=== PATIENT | male | born 1945 | race Caucasian/White ===

== ENCOUNTER → 2019-06-01 08:45 | Outpatient (CLI) | payer MEDICARE, OTHER, SELFPAY ==
--- NOTE | 2019-06-01 08:47 | DI.RAD.S_ITS ---
PROCEDURE: XR SHOULDER LT MIN 2V INDICATIONS: left shoulder pain TECHNIQUE: 3 views of the shoulder were acquired. COMPARISON: None. FINDINGS: Bones: No fractures or dislocations. No suspicious bony lesions. Visualized ribs appear intact. Soft tissues: No suspicious soft tissue calcifications. 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 Dictated by: Danilo Hale M.D. on 06/01/2019 at 9:53 Approved by: Danilo Hale M.D. on 06/01/2019 at 9:53
== END ==
PROVIDERS: PCP Family Medicine; Visit Provider Physical Medicine & Rehabilitation
DX: M25.512 Pain in left shoulder (principal); M19.012 Primary osteoarthritis, left shoulder
CPT/HCPCS: 20611; 73030; 99214; J0702

== ENCOUNTER → 2021-09-02 10:00 | Outpatient (CLI) | payer MEDICARE, OTHER, SELFPAY ==
[2021-09-02 13:15] LABS: COVID19 -Nasal RAPID Negative (Negative)
== END ==
PROVIDERS: PCP Family Medicine; Referring Provider Physical Medicine & Rehabilitation; Visit Provider Physical Medicine & Rehabilitation
DX: Z20.822 Contact with and (suspected) exposure to COVID-19 (principal)
CPT/HCPCS: 87635; C9803

== ENCOUNTER 2021-09-03 10:30 | Outpatient (CLI) | payer MEDICARE, OTHER, SELFPAY ==
--- NOTE | 2021-09-03 10:31 | DI.RAD.S_ITS ---
PROCEDURE: PAIN L/S TRANSFORAMINAL INJECT INDICATIONS: SPONDYLOSIS COMPARISON: [facility] [place], CR, XR LUMBAR SPINE 2 OR 3 VIEWS, 05/20/2021, 11:29. FINDINGS: Fluoroscopic spot filming was performed to verify placement of a spinal needle at the L4-L5 level on the right, as labeled on the films. Appropriate location of the needle tip was confirmed by injection of iodinated contrast. IMPRESSION: Intraprocedural examination within normal limits. Dictated by: Trung Shore M.D. on 09/03/2021 at 11:12 Approved by: Trung Shore M.D. on 09/03/2021 at 11:12
[2021-09-03 11:00] VITALS: BP 146/68; PULSE 61; RESP 15; TEMP 37.1; O2SAT 98
[2021-09-03 11:50] VITALS: BP 181/83; PULSE 72; RESP 18; O2SAT 99
[2021-09-03] MEDS: IOPAMIDOL 15 ML VIAL 3 ML INJ (11:54)
[2021-09-03] MEDS: BUPIVACAINE 0.25% (PF) VIAL 2 ML INJ (11:54)
[2021-09-03 11:55] VITALS: BP 164/72; PULSE 65; RESP 15; O2SAT 99
[2021-09-03] MEDS: BETAMETHASONE 30 MG/5 ML MDV 12 MG INJ (11:55)
[2021-09-03] MEDS: DEXAMETHASONE 10 MG/ML VIAL 20 MG INJ (11:55)
[2021-09-03 12:00] VITALS: BP 160/70; PULSE 66; RESP 12; O2SAT 99
--- NOTE | 2021-09-03 12:05 | P.PCN_ITS ---
Date/Time/Diagnoses Date of procedure: 09/03/21 Time of procedure: 12:05 Pre-procedure diagnosis: 1. FORAMINAL STENOSIS WITH LE SYMPTOMS Post-procedure diagnosis: same Procedure Notes Procedure: 1. FLUOROSCOPICALLY GUIDED CONTRAST CONTROLLED TRANSFORAMINAL EPIDURAL STEROID INJECTION - RIGHT L4/5 TFESI Indications: Jonnathan is referred by Dr. Lopez for treatment of Foraminal Stenosis with Right LE Symptoms Physician: Deondre Cameron Total Fluoroscopy time (seconds): 10 Total sedation minutes: 0 Complications: none Procedure in detail & Post-procedure care: FINDINGS Foraminal Nerve Root Compression secondary to disc disease and facet hypertrophy DESCRIPTION OF PROCEDURE Following review of allergy and review of potential side effects and complications, including, but not necessarily limited to, infection, allergic reaction, local tissue breakdown, stroke, temporary or permanent nerve injury, paralysis, and possible , the patient indicated that the patient understood and agreed to proceed. An informed consent document was signed by the patient, witnessed by a nurse, and placed in the patient's chart. Additionally, other treatment options including medications, modalities, and physical therapy were reviewed with the patient. After review of previous anaesthesic history and IV conscious sedation the patient was deemed safe to proceed with today?s procedure with IV conscious sedation as ASA class II designation. Safety time-out was performed to confirm patient ID, procedure to be performed and site of procedure. IV sedation was deemed unnecessary and thus not administered by the RN after DO order, titrated to patient comfort during the course of the procedure while the patient remained responsive to all verbal commands In the prone position following sterile prep and drape of the lumbar region, the right L4/5 posterior neuroforamen was identified fluoroscopically. The skin was anesthetized via a 25-gauge 1.5-inch needle with 1% lidocaine solution. At this point, a 25-gauge 3.5-inch spinal needle was atraumatically introduced and advanced under fluoroscopic guidance through the posterior right L4/5 neuroforamen to approximately the anterior aspect of the canal. Depth was confirmed on lateral view. Following negative aspiration, injection of approximately 1.5cc of Isovue 200 under live fluoroscopy in the AP view confirmed excellent flow along the nerve root, into the epidural space without vascular or intrathecal uptake observed Radiological data, including multiple fluoroscopic views of the lumbosacral spine, reveal a spinal needle at the right L4/5 posterior neuroforamen. Subsequent views show flow of contrast material flowing superiorly and inferiorly along the nerve root confirming epidural flow. Subsequently, a test dose of 1.5 cc of 1% lidocaine solution was administered and patient was observed for two minutes for signs or symptoms of complications, including abdominal pain, shortness of breath, bilateral upper or lower extremity weakness, nausea and vomiting, prior to steroid injection. At this point, a total of 4cc or 20mg of dexamethasone and 12mg of betamethasone was injected without incident. The procedure tolerated the procedure well without signs or symptoms of complications prior to transfer to the recovery area continued monitoring without incident. The patient was then transferred to the recovery area where they were observed for an appropriate time after the injection. The patient reported a VAS score of 7 prior to the procedure and a post- procedure VAS of 0. POST OP INSTRUCTIONS The patient was provided a Pain Log to continue to record their response to the target-specific procedure prior to follow-up visit with their referring physician. Additionally, specific post-injection care instructions and a contact number to our office were provided if concerns arise regarding possible complications associated with the procedure are suspected.
[2021-09-03 12:10] VITALS: BP 184/77; PULSE 64; RESP 16; O2SAT 99
== END 2021-09-03 12:15 | disposition home or self-care (01) ==
LOC: RAD 10:31
PROVIDERS: PCP Family Medicine; Referring Provider Physical Medicine & Rehabilitation; Visit Provider Physical Medicine & Rehabilitation
DX: M48.061 Spinal stenosis, lumbar region without neurogenic claudication (principal); M51.16 Intervertebral disc disorders with radiculopathy, lumbar region
CPT/HCPCS: 64483; J0702; J1100

== ENCOUNTER → 2022-01-06 12:24 | Outpatient (CLI) | payer MEDICARE, OTHER, SELFPAY ==
[2022-01-06 14:56] LABS: COVID19 -Nasal RAPID Negative (Negative)
== END ==
PROVIDERS: PCP Family Medicine; Visit Provider Physical Medicine & Rehabilitation
DX: Z20.822 Contact with and (suspected) exposure to COVID-19 (principal)
CPT/HCPCS: 87635; C9803

== ENCOUNTER 2022-01-07 08:09 | Outpatient (CLI) | payer MEDICARE, OTHER, SELFPAY ==
--- NOTE | 2022-01-07 08:11 | DI.RAD.S_ITS ---
PROCEDURE: PAIN L/SI FACET INJ/BLK 1STL INDICATIONS: SPONDYLOSIS COMPARISON: None. FINDINGS: Fluoroscopic spot filming was performed to verify placement of spinal needles at the right L4-L5 and L5-S1 facets level(s), as labeled on the films. Appropriate location(s) of the needle tip(s) was confirmed by injection of iodinated contrast. IMPRESSION: Access needle tips localized to the right L4-L5 and L5-S1 facets. Dictated by: Meli Diaz MD, PhD on 01/07/2022 at 10:37 Approved by: Meli Diaz MD, PhD on 01/07/2022 at 10:38
[2022-01-07 08:23] VITALS: BP 150/74; PULSE 64; RESP 20; TEMP 37.1; O2SAT 99
[2022-01-07 08:50] VITALS: BP 171/75; PULSE 69; RESP 15; O2SAT 100
[2022-01-07 08:55] VITALS: BP 132/63; PULSE 70; RESP 15; O2SAT 100
[2022-01-07] MEDS: BUPIVACAINE 0.5% (PF) VIAL 5 ML INJ (08:56)
[2022-01-07] MEDS: IOPAMIDOL 15 ML VIAL 3 ML INJ (08:56)
[2022-01-07] MEDS: BETAMETHASONE 30 MG/5 ML MDV 12 MG INJ (08:57)
[2022-01-07 09:00] VITALS: BP 140/65; PULSE 66; RESP 15; O2SAT 100
[2022-01-07 09:05] VITALS: BP 120/98; PULSE 70; RESP 18; O2SAT 98
--- NOTE | 2022-01-07 09:06 | P.PCN_ITS ---
Date/Time/Diagnoses Date of procedure: 01/07/22 Time of procedure: 09:06 Pre-procedure diagnosis: 1. FACET ARTHROPATHY, 2. AXIAL LBP, 3. MULTILEVEL DDD This procedure is found to meet the Governor's proclamation 20-24.2 regarding non urgent procedures. This patient meets multiple criteria for the procedure including continuing or worsening of significant or severe pain, combined with further deterioration of the patient's condition or overall health as well as delay in treatment would be expected to result in less positive ultimate medical outcome. Therefore the decision to perform the procedure in an outpatient hospital setting is found to be in accordance with guidelines of the procl amation. Post-procedure diagnosis: same Procedure Notes Procedure: 1. FLUOROSCOPICALLY GUIDED CONTRAST CONTROLLED FACET JOINT INJECTIONS RIGHT L4/5, L5/S1 Indications: Jonnathan is referred by Dr. Lopez for treatment of Axial LBP Physician: Deondre Cameron Total Fluoroscopy time (seconds): 7 Total sedation minutes: 0 Complications: none Procedure in detail & Post-procedure care: FINDINGS Multilevel Facet Arthropathy with Clinically significant axial LBP DESCRIPTION OF PROCEDURE Fluoroscopically guided, contrast-controlled right L4/5, L5/S1 facet joint injections. Following review of allergy and review of potential side effects and complications, including, but not necessarily limited to, infection, allergic reaction, local tissue breakdown, stroke, temporary or permanent nerve injury, paralysis, and possible , the patient indicated that the patient understood and agreed to proceed. An informed consent document was signed by the patient, witnessed by a nurse, and placed in the patient's chart. Additionally, other treatment options including medications, modalities, and physical therapy were reviewed with the patient. After review of previous anaesthesic history and IV conscious sedation the patient was deemed safe to proceed with today?s procedure with IV conscious sedation as ASA class II designation. Safety time-out was performed to confirm patient ID, procedure to be performed and site of procedure. IV sedation was deemed unnecessary and thus not administered to comfort during the course of the procedure while the patient remained responsive to all verbal commands. In the prone position, following sterile prep and drape of the lumbar region, the posterior aspect of the right L4/5, L5/S1 facet joints were identified fluoroscopically. The skin was anesthetized via a 25-gauge 1.5-inch needle with 1% lidocaine solution into the corresponding facet joints. At this point, a 22- gauge 3.5-inch spinal needle was atraumatically introduced and advanced under fluoroscopic guidance into the corresponding facet joints. Following negative aspiration, injections of approximately 0.2-cc of Isovue 200 confirmed interarticular placement without vascular uptake. Radiological data, including multiple fluoroscopic views of the lumbosacral spine, reveal a spinal needle at the right L4/5, L5/S1 facet joints. Subsequent views show flow of contrast material both superiorly and inferiorly within the joint space without vascular or intrathecal uptake. At this point, a total of 0.5cc including a mixture of 0.25cc Marcaine and 0.25cc betamethasone was injected without complication into each of the corresponding facet joints. The procedure tolerated the procedure well without signs or symptoms of complications prior to transfer to the recovery area continued monitoring without incident. The patient was then transferred to the recovery area where they were observed for an appropriate period of time after the injection. The patient reported a VAS score of 7 prior to the procedure and a post-procedure VAS of 0. POST OP INSTRUCTIONS The patient was provided a Pain Log to continue to record their response to the target-specific procedure prior to follow-up visit with their referring physician. Additionally, specific post-injection care instructions and a contact number to our office were provided if concerns arise regarding possible complications associated with the procedure are suspected.
== END 2022-01-07 09:11 | disposition home or self-care (01) ==
LOC: RAD 08:11
PROVIDERS: PCP Family Medicine; Referring Provider Physical Medicine & Rehabilitation; Visit Provider Physical Medicine & Rehabilitation
DX: M47.816 Spondylosis without myelopathy or radiculopathy, lumbar region (principal); M47.817 Spondylosis without myelopathy or radiculopathy, lumbosacral region; M51.36 Other intervertebral disc degeneration, lumbar region; M51.37 Other intervertebral disc degeneration, lumbosacral region
CPT/HCPCS: 64493; 64494; J0702

== ENCOUNTER → 2022-03-05 08:52 | Outpatient (CLI) | payer MEDICARE, OTHER, SELFPAY ==
--- NOTE | 2022-03-05 08:54 | DI.RAD.S_ITS ---
PROCEDURE: XR HIP W PEL IF DONE ASHKAN MIN 4V INDICATIONS: right hip pain TECHNIQUE: AP pelvis with lateral view(s) of both hip(s). COMPARISON: None. FINDINGS: Bones: No fractures or dislocations. Pelvic ring appears intact. No suspicious bony lesions. Mild symmetric hip and sacroiliac joint degeneration. Moderate degenerative disc disease at L4-L5. Soft tissues: The visualized bowel gas pattern is normal. No suspicious soft tissue calcifications. IMPRESSION: 1. 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 Dictated by: Giulia Cervantes M.D. on 03/05/2022 at 17:43 Approved by: Giulia Cervantes M.D. on 03/05/2022 at 17:52
== END ==
PROVIDERS: PCP Family Medicine; Referring Provider Physical Medicine & Rehabilitation; Visit Provider Physical Medicine & Rehabilitation
DX: M16.0 Bilateral primary osteoarthritis of hip (principal); M46.1 Sacroiliitis, not elsewhere classified; M43.16 Spondylolisthesis, lumbar region; M75.42 Impingement syndrome of left shoulder; M75.122 Complete rotator cuff tear or rupture of left shoulder, not specified as traumatic; M54.17 Radiculopathy, lumbosacral region; M96.1 Postlaminectomy syndrome, not elsewhere classified
CPT/HCPCS: 73522; 99214

== ENCOUNTER → 2022-03-17 09:43 | Outpatient (CLI) | payer MEDICARE, OTHER, SELFPAY ==
[2022-03-17 11:17] LABS: COVID19 -Nasal RAPID Negative (Negative)
== END ==
PROVIDERS: PCP Family Medicine; Visit Provider Physical Medicine & Rehabilitation
DX: Z20.822 Contact with and (suspected) exposure to COVID-19 (principal)
CPT/HCPCS: 87635; C9803

== ENCOUNTER 2022-03-18 15:15 | Outpatient (CLI) | payer MEDICARE, OTHER, SELFPAY ==
[2022-03-18] VITALS (7 sets, daily range): BP systolic 151–176; BP diastolic 71–85; PULSE 73–83; RESP 16–24; TEMP 37.3; O2SAT 98–100
--- NOTE | 2022-03-18 | DI.RAD.S_ITS ---
PROCEDURE: PAIN L/S TRANSFORAMINAL INJECT INDICATIONS: SPONDYLOSIS COMPARISON: [facility], , PAIN L/S TRANSFORAMINAL INJECT, 09/03/2021, 11:54. FINDINGS: Fluoroscopic spot filming was performed to verify placement of a spinal needle at the L4-L5 level, as labeled on the films. Appropriate location of the needle tip was confirmed by injection of iodinated contrast. IMPRESSION: Intraprocedural examination within normal limits. Dictated by: Trung Shore M.D. on 03/18/2022 at 16:27 Approved by: Trung Shore M.D. on 03/18/2022 at 16:28
--- NOTE | 2022-03-18 15:57 | PC.NURSE ---
NO IV OR SEDATION PER PATIENT. OK PER DR. GRAHAM.
[2022-03-18] MEDS: BETAMETHASONE 30 MG/5 ML MDV 6 MG INJ (16:11)
[2022-03-18] MEDS: DEXAMETHASONE 10 MG/ML VIAL 20 MG INJ (16:11)
[2022-03-18] MEDS: IOPAMIDOL 15 ML VIAL 3 ML INJ (16:11)
[2022-03-18] MEDS: BUPIVACAINE 0.25% (PF) VIAL 2 ML INJ (16:11)
--- NOTE | 2022-03-18 16:23 | P.PCN_ITS ---
Date/Time/Diagnoses Date of procedure: 03/18/22 Time of procedure: 16:23 Pre-procedure diagnosis: 1. FORAMINAL STENOSIS WITH LE SYMPTOMS Post-procedure diagnosis: same Procedure Notes Procedure: 1. FLUOROSCOPICALLY GUIDED CONTRAST CONTROLLED TRANSFORAMINAL EPIDURAL STEROID INJECTION - RIGHT L4/5 TFESI Indications: Jonnathan is referred by Dr. Lopez for treatment of Foraminal Stenosis with Right LE Symptoms Physician: Deondre Cameron Total Fluoroscopy time (seconds): 10 Total sedation minutes: 0 Complications: none Procedure in detail & Post-procedure care: FINDINGS Foraminal Nerve Root Compression secondary to disc disease and facet hypertrophy DESCRIPTION OF PROCEDURE Following review of allergy and review of potential side effects and complications, including, but not necessarily limited to, infection, allergic reaction, local tissue breakdown, stroke, temporary or permanent nerve injury, paralysis, and possible , the patient indicated that the patient understood and agreed to proceed. An informed consent document was signed by the patient, witnessed by a nurse, and placed in the patient's chart. Additionally, other treatment options including medications, modalities, and physical therapy were reviewed with the patient. After review of previous anaesthesic history and IV conscious sedation the patient was deemed safe to proceed with today?s procedure with IV conscious sedation as ASA class II designation. Safety time-out was performed to confirm patient ID, procedure to be performed and site of procedure. IV sedation was deemed unnecessary and thus not administered by the RN after DO order, titrated to patient comfort during the course of the procedure while the patient remained responsive to all verbal commands In the prone position following sterile prep and drape of the lumbar region, the right L4/5 posterior neuroforamen was identified fluoroscopically. The skin was anesthetized via a 25-gauge 1.5-inch needle with 1% lidocaine solution. At this point, a 25-gauge 3.5-inch spinal needle was atraumatically introduced and advanced under fluoroscopic guidance through the posterior right L4/5 neuroforamen to approximately the anterior aspect of the canal. Depth was confirmed on lateral view. Following negative aspiration, injection of approximately 1.5cc of Isovue 200 under live fluoroscopy in the AP view confirmed excellent flow along the nerve root, into the epidural space without vascular or intrathecal uptake observed Radiological data, including multiple fluoroscopic views of the lumbosacral spine, reveal a spinal needle at the right L4/5 posterior neuroforamen. Subsequent views show flow of contrast material flowing superiorly and inferiorly along the nerve root confirming epidural flow. Subsequently, a test dose of 1.5 cc of 1% lidocaine solution was administered and patient was observed for two minutes for signs or symptoms of complications, including abdominal pain, shortness of breath, bilateral upper or lower extremity weakness, nausea and vomiting, prior to steroid injection. At this point, a total of 3cc or 20mg of dexamethasone and 6mg of betamethasone was injected without incident. The procedure tolerated the procedure well without signs or symptoms of complications prior to transfer to the recovery area continued monitoring without incident. The patient was then transferred to the recovery area where they were observed for an appropriate time after the injection. The patient reported a VAS score of 7 prior to the procedure and a post- procedure VAS of 0. POST OP INSTRUCTIONS The patient was provided a Pain Log to continue to record their response to the target-specific procedure prior to follow-up visit with their referring physician. Additionally, specific post-injection care instructions and a contact number to our office were provided if concerns arise regarding possible complications associated with the procedure are suspected.
== END 2022-03-18 15:34 | disposition home or self-care (01) ==
PROVIDERS: PCP Family Medicine; Referring Provider Physical Medicine & Rehabilitation; Visit Provider Physical Medicine & Rehabilitation
DX: M48.061 Spinal stenosis, lumbar region without neurogenic claudication (principal); M51.16 Intervertebral disc disorders with radiculopathy, lumbar region
CPT/HCPCS: 64483; J0702; J1100

== ENCOUNTER → 2022-07-07 11:41 | Outpatient (CLI) | payer MEDICARE, OTHER, SELFPAY ==
[2022-07-07 13:05] LABS: COVID19 -Nasal RAPID Negative (Negative)
== END ==
PROVIDERS: PCP Family Medicine; Visit Provider Physical Medicine & Rehabilitation
DX: Z20.822 Contact with and (suspected) exposure to COVID-19 (principal)
CPT/HCPCS: 87635; C9803

== ENCOUNTER 2022-07-08 14:15 | Outpatient (CLI) | payer MEDICARE, OTHER, SELFPAY ==
--- NOTE | 2022-07-08 14:18 | DI.RAD.S_ITS ---
PROCEDURE: PAIN L/SI FACET INJ/BLK 1STL INDICATIONS: SPONDYLOSIS COMPARISON: [facility], XA, PAIN L/SI FACET INJ/BLK 1STL, 01/07/2022, 9:56. FINDINGS: Fluoroscopic spot filming was performed to verify placement of spinal needles 4 multilevel medial branch block procedure. IMPRESSION: Fluoroscopic imaging utilized for performance of a multilevel lumbar medial branch block procedure. Dictated by: Manjit Reyez M.D. on 07/08/2022 at 16:35 Approved by: Manjit Reyez M.D. on 07/08/2022 at 16:35
[2022-07-08 14:32] VITALS: BP 136/72; PULSE 81; RESP 16; TEMP 37.1; O2SAT 97
[2022-07-08 15:00] VITALS: BP 137/63; PULSE 80; RESP 17; O2SAT 97
[2022-07-08 15:05] VITALS: BP 134/64; PULSE 75; RESP 19; O2SAT 99
[2022-07-08] MEDS: IOPAMIDOL 15 ML VIAL 3 ML INJ (15:07)
[2022-07-08] MEDS: LIDOCAINE 1% 20 ML INJ (15:08)
[2022-07-08] MEDS: BUPIVACAINE 0.5% (PF) VIAL 5 ML INJ (15:08)
[2022-07-08 15:10] VITALS: BP 123/57; PULSE 72; RESP 15; O2SAT 98
--- NOTE | 2022-07-08 15:19 | PM.PROC.IR.1 ---
Date/Time/Diagnoses Date of procedure: 07/08/22 Time of procedure: 15:19 Pre-procedure diagnosis: 1. FACET ARTHROPATHY Post-procedure diagnosis: same Procedure Notes Procedure: 1. Right L3, L4, L5 and S1 MB BLOCKS LA Indications: Jonnathan is referred by Dr. Lopez for treatment of Right Axial LBP. Physician: Deondre Cameron Total Fluoroscopy time (seconds): 7 Total sedation minutes: 0 Complications: none Procedure in detail & Post-procedure care: DESCRIPTION OF PROCEDURE Fluoroscopically guided, contrast-controlled right L3, L4, L5 and S1 medial branch blocks with 0.5cc of 0.5% Marcaine. Following review of allergy and review of potential side effects and complications, including, but not necessarily limited to, infection, allergic reaction, local tissue breakdown, nerve injury, paralysis, stroke and possible , the patient indicated that the patient understood and agreed to proceed. An informed consent document was signed by the patient, witnessed by a nurse, and placed in the patient's chart. After review of previous anaesthesic history and IV conscious sedation the patient was deemed safe to proceed with today?s procedure with IV conscious sedation as ASA class II designation. Safety time-out was performed to confirm patient ID, procedure to be performed and site of procedure. IV sedation was deemed unnecessary and thus not administered by the RN after DO order, titrated to patient comfort during the course of the procedure while the patient remained responsive to all verbal commands In the prone position, following sterile prep and drape of the lumbar region, the right L3, L4, L5 and S1 anatomical location of the medial branch of the dorsal ramus was identified fluoroscopically. Subsequently an anesthetic skin wheal using 1% lidocaine solution was initiated at each of the anatomical spots. Subsequently then a 22-gauge 3.5-inch spinal needle was atraumatically introduced and advanced under fluoroscopic guidance at each of the corresponding sites at the right L3, L4, L5 and S1 MB. After negative aspiration, 0.2cc of Isovue 200 was injected, confirming placement without vascular or intrathecal uptake. Subsequently then 0.5cc of 0.5% Marcaine solution was injected at each of the corresponding sites at the right L3, L4, L5 and S1 medial branch locations. The patient tolerated the procedure well without signs or symptoms of complications. The procedure tolerated the procedure well without signs or symptoms of complications prior to transfer to the recovery area continued monitoring without incident. Post-procedure, the patient was monitored initiating provocative activities to measure the amount of relief from block of the facetogenic pain. The patient reported a VAS of 7 prior to the procedure and a post-procedure VAS of 1. It has been a pleasure to assist in the diagnostic and therapeutic care of your patient. POST OP INSTRUCTIONS The patient was provided with a Pain Log to complete over the next several hours and subsequent days prior to the patient's follow up with the ordering physician. If the patient has business continuity specialist relief to the solution applied, then they may be a candidate for medial branch rhizotomy. The patient is aware, was provided, once again, with a Pain Log and will follow up with the referring physician for review and clinical correlation.
[2022-07-08 15:20] VITALS: BP 157/69; PULSE 79; RESP 18; O2SAT 98
== END 2022-07-08 15:25 | disposition home or self-care (01) ==
LOC: RAD 14:18
PROVIDERS: PCP Family Medicine; Referring Provider Physical Medicine & Rehabilitation; Visit Provider Physical Medicine & Rehabilitation
DX: M47.816 Spondylosis without myelopathy or radiculopathy, lumbar region (principal); M47.817 Spondylosis without myelopathy or radiculopathy, lumbosacral region
CPT/HCPCS: 64493; 64494; 64495

== ENCOUNTER 2022-10-14 07:59 | Outpatient (CLI) | payer MEDICARE, OTHER, SELFPAY ==
--- NOTE | 2022-10-14 08:00 | DI.RAD.S_ITS ---
PROCEDURE: PAIN L/SI FACET INJ/BLK 1STL INDICATIONS: SPONDYLOSIS COMPARISON: [facility], , PAIN L/SI FACET INJ/BLK 1STL, 07/08/2022, 15:04. FINDINGS: Fluoroscopic spot filming was performed to verify placement of spinal needles on the right at the L3, L4, L5, and S1 levels, as labeled on the films. Appropriate location of the needle tips was confirmed by injection of iodinated contrast. IMPRESSION: Intraprocedural examination demonstrating appropriate positions of the needles. Dictated by: Trung Shore M.D. on 10/14/2022 at 12:03 Approved by: Trung Shore M.D. on 10/14/2022 at 12:03
[2022-10-14 08:42] VITALS: BP 136/63; PULSE 61; RESP 18; TEMP 37; O2SAT 97
--- NOTE | 2022-10-14 08:44 | PC.NURSE ---
Patient does not want sedation, refused IV placement
[2022-10-14 09:31] VITALS: BP 162/72; PULSE 60; RESP 18; O2SAT 100
[2022-10-14 09:36] VITALS: BP 153/70; PULSE 63; RESP 16; O2SAT 100
[2022-10-14] MEDS: IOPAMIDOL 15 ML VIAL 3 ML INJ (09:36)
[2022-10-14] MEDS: BUPIVACAINE 0.5% MDV 5 ML SUBCUT (09:37)
[2022-10-14 09:41] VITALS: BP 134/62; PULSE 62; RESP 13; O2SAT 100
[2022-10-14 09:43] VITALS: BP 131/65; PULSE 63; RESP 12; O2SAT 100
--- NOTE | 2022-10-14 09:47 | P.PCN_ITS ---
Date/Time/Diagnoses Date of procedure: 10/14/22 Time of procedure: 09:47 Pre-procedure diagnosis: 1. FACET ARTHROPATHY Post-procedure diagnosis: same Procedure Notes Procedure: 1. Right L3, L4, L5 and S1 MB BLOCKS SA Indications: Jonnathan is referred by Dr. Lopez for treatment of Right Axial LBP. Physician: Deondre Cameron Total Fluoroscopy time (seconds): 6 Total sedation minutes: 0 Complications: none Procedure in detail & Post-procedure care: DESCRIPTION OF PROCEDURE Fluoroscopically guided, contrast-controlled right L3, L4, L5 and S1 medial branch blocks with 0.5cc of 2% Lidocaine. Following review of allergy and review of potential side effects and complications, including, but not necessarily limited to, infection, allergic reaction, local tissue breakdown, nerve injury, paralysis, stroke and possible , the patient indicated that the patient understood and agreed to proceed. An informed consent document was signed by the patient, witnessed by a nurse, and placed in the patient's chart. After review of previous anaesthesic history and IV conscious sedation the patient was deemed safe to proceed with today?s procedure with IV conscious sedation as ASA class II designation. Safety time-out was performed to confirm patient ID, procedure to be performed and site of procedure. IV sedation was deemed unnecessary and thus not administered by the RN after DO order, titrated to patient comfort during the course of the procedure while the patient remained responsive to all verbal commands In the prone position, following sterile prep and drape of the lumbar region, the right L3, L4, L5 and S1 anatomical location of the medial branch of the dorsal ramus was identified fluoroscopically. Subsequently an anesthetic skin wheal using 1% lidocaine solution was initiated at each of the anatomical spots. Subsequently then a 22-gauge 3.5-inch spinal needle was atraumatically introduced and advanced under fluoroscopic guidance at each of the corresponding sites at the right L3, L4, L5 and S1 MB. After negative aspiration, 0.2cc of Isovue 200 was injected, confirming placement without vascular or intrathecal uptake. Subsequently then 0.5cc of 2% Lidocaine solution was injected at each of the corresponding sites at the right L3, L4, L5 and S1 medial branch locations. The patient tolerated the procedure well without signs or symptoms of complications. The procedure tolerated the procedure well without signs or symptoms of complications prior to transfer to the recovery area continued monitoring without incident. Post-procedure, the patient was monitored initiating provocative activities to measure the amount of relief from block of the facetogenic pain. The patient reported a VAS of 7 prior to the procedure and a post-procedure VAS of 1. It has been a pleasure to assist in the diagnostic and therapeutic care of your patient. POST OP INSTRUCTIONS The patient was provided with a Pain Log to complete over the next several hours and subsequent days prior to the patient's follow up with the ordering physician. If the patient has pc support specialist relief to the solution applied, then they may be a candidate for medial branch rhizotomy. The patient is aware, was provided, once again, with a Pain Log and will follow up with the referring physician for review and clinical correlation.
[2022-10-14 09:50] VITALS: BP 168/71; PULSE 68; RESP 16; O2SAT 97
== END 2022-10-14 09:55 | disposition home or self-care (01) ==
PROVIDERS: PCP Family Medicine; Referring Provider Physical Medicine & Rehabilitation; Visit Provider Physical Medicine & Rehabilitation
DX: M47.816 Spondylosis without myelopathy or radiculopathy, lumbar region (principal); M47.817 Spondylosis without myelopathy or radiculopathy, lumbosacral region
CPT/HCPCS: 64493; 64494; 64495

== ENCOUNTER 2023-02-10 10:10 | Outpatient (CLI) | payer MEDICARE, OTHER, SELFPAY ==
[2023-02-10] VITALS (8 sets, daily range): BP systolic 125–181; BP diastolic 60–80; PULSE 62–71; RESP 13–20; TEMP 36.6; O2SAT 96–100
--- NOTE | 2023-02-10 10:16 | DI.RAD.S_ITS ---
PROCEDURE: PAIN L/S MED/LAT N RFA INDICATIONS: SPONDYLOSIS COMPARISON: [facility], , PAIN L/SI FACET INJ/BLK 1STL, 10/14/2022, 10:37. FINDINGS: Fluoroscopic spot filming was performed to verify placement of spinal needles on the right at the L3, L4, L5, and S1 levels, as labeled on the films. IMPRESSION: Images during rhizotomy within normal limits. Dictated by: Trung Shore M.D. on 02/10/2023 at 12:17 Approved by: Trung Shore M.D. on 02/10/2023 at 12:18
[2023-02-10] MEDS: LIDOCAINE 1% (PF) 5 ML INJ (12:00)
[2023-02-10] MEDS: BUPIVACAINE 0.5% (PF) 30 ML VIAL 5 ML INJ (12:00)
--- NOTE | 2023-02-10 12:30 | P.PCN_ITS ---
Date/Time/Diagnoses Date of procedure: 02/10/23 Time of procedure: 12:30 Pre-procedure diagnosis: 1. RECALCITRANT FACET ARTHROPATHY Post-procedure diagnosis: same Procedure Notes Procedure: 1. RIGHT L4 AND L5 MEDIAL BRANCH RADIOFREQUENCY NEUROTOMY AND RIGHT S1 DORSAL RAMUS BRANCH RADIOFREQUENCY NEUROTOMY Indications: Jonnathan is referred by Dr. Lopez for treatment of facet arthropathy. Physician: Deondre Cameron Total Fluoroscopy time (seconds): 11 Total sedation minutes: 0 Complications: none Procedure in detail & Post-procedure care: DESCRIPTION OF PROCEDURE Right L3, L4 and L5 medial branch radiofrequency neurotomy and right S1 dorsal ramus branch radiofrequency neurotomy under fluoroscopy with conscious sedation. The patient is well known to this clinic having undergone previous facet injecti ons with good but temporary relief. The patient has experienced appropriate, concordant relief with previous facet and median branch blocks but the patient's pain has been recalcitrant to further conservative measures. Therefore, based upon the patient's relief and persistent symptoms, the patient is considered an appropriate candidate for facet rhizotomy. All of the patient's questions regarding the risks versus benefits of the procedure, including, but not limited to, bleeding, infection, temporary as well as lasting nerve injury, paralysis, stroke, and , as well treatment alternatives were answered to satisfaction. After review of previous anaesthesic history and IV conscious sedation the patient was deemed safe to proceed with today?s procedure with IV conscious sedation as ASA class II designation. Safety time-out was performed to confirm patient ID, procedure to be performed and site of procedure. IV sedation was deemed unnecessary and thus was not administered by the RN after DO order, titrated to patient comfort during the course of the procedure while the patient remained responsive to all verbal commands. After obtaining informed consent, denial of pertinent drug allergies, as well as being made aware of the potential risks of bleeding, infection, spinal cord trauma, paralysis, temporary and permanent nerve damage, seizure, stroke, and possible , the patient was brought to the fluoroscopy suite and positioned prone on the fluoroscopy table. The lumbar region was prepped with chlorhexadine and covered with a fenestrated drape in the usual sterile fashion. Appropriate monitors applied including pulse oximeter, pulse, and blood pressure for regular monitoring throughout the procedure. After local infiltration using 1% lidocaine, under fluoroscopic guidance, a 10- cm RF insulated venom needle with a 10-mm active tip was positioned parallel to the junction of the right sacral ala and the superior articulating process where the S1 dorsal ramus resides. Needle placement was confirmed with sensory stimulation at 50 Hz, with motor stimulation of .5v on the right which produced local stimulation without radicular component. The stimulation was then increased to 2v with, once again, only local multifidus stimulation without radicular component. This was then followed by two discreet lesions performed at 80 degrees Celsius for 90 seconds each. The needle was then removed and the identical procedure was performed along the length of the right L5 medial branch with motor stimulation at .7v on the right. The identical procedure was once again performed along the length of the right L4 medial branch with motor stimulation of .5v on the right. The identical procedure was once again performed along the length of the right L3 medial branch with motor stimulation of .5v on the right. The patient tolerated the procedure well without signs or symptoms of complications prior to transfer to the recovery area continued monitoring wit hout incident. The patient was then transferred to the recovery area where they were observed for an appropriate period of time after the injection. The patient was then transferred to the recovery area where they were observed for an appropriate period of time after the injection. The patient reported a VAS score of 8 prior to the procedure and a post- procedure VAS of 0. POST OP INSTRUCTIONS The patient was provided a Pain Log to continue to record the patient's response to the target-specific procedure prior to the patient's follow-up visit with the referring physician. Additionally, specific post-injection care instructions and a contact number to our office were provided if concerns arise regarding possible complications associated with the procedure are suspected.
== END 2023-02-10 12:37 | disposition home or self-care (01) ==
PROVIDERS: PCP Family Medicine; Referring Provider Physical Medicine & Rehabilitation; Visit Provider Physical Medicine & Rehabilitation
DX: M47.816 Spondylosis without myelopathy or radiculopathy, lumbar region (principal); M47.817 Spondylosis without myelopathy or radiculopathy, lumbosacral region
CPT/HCPCS: 64635; 64636

== ENCOUNTER → 2023-04-30 07:44 | Outpatient (CLI) | payer MEDICARE, OTHER, SELFPAY ==
--- NOTE | 2023-04-30 07:46 | DI.MRI.S_ITS ---
PROCEDURE: MR CERVICAL SPINE WO CON INDICATIONS: Progressive cervical stenosis TECHNIQUE: Noncontrast sagittal T1 spin echo and T2 fast spin echo, sagittal STIR, foraminal oblique sagittal T2 fast spin echo, and axial gradient echo or T2 fast spin echo through the cervical spine. [facility]W, 03/28/2016, 10:15. FINDINGS: Image quality: Excellent. Alignment and Curvature: 3 mm anterolisthesis of C4 on C5. 4 mm anterolisthesis of C5 on C6. Trace retrolisthesis of C6 on C7. 3 mm anterolisthesis of C7 on T1. Bone Marrow: Marrow demonstrates normal overall signal. Spinal Cord: Visualized spinal cord has normal size and signal. No cerebellar tonsillar herniation. Paraspinous Soft Tissues: No paravertebral masses. Prevertebral soft tissues are normal in thickness. C2-C3: Right facet hypertrophy. No canal stenosis. Moderate right foraminal stenosis with mild flattening deformity on the exiting right C3 nerve root. C3-C4: Diffuse disc bulge. Mild central posterior disc protrusion. No canal stenosis. AP diameter of the canal is 12 mm. Bilateral prominent uncovertebral joint osteophytes. Moderate to severe bilateral foraminal narrowing with flattening deformity on the exiting bilateral C4 nerve roots. C4-C5: 3 mm anterolisthesis of C4 on C5. Diffuse disc bulge. [id number] canal stenosis. Bilateral uncovertebral joint hypertrophy and facet hypertrophy. Moderate to severe bilateral foraminal narrowing. There is a degree of foraminal right C5 nerve root impingement and flattening deformity on the exiting left C5 nerve root. C5-C6: 4 mm anterolisthesis of C5 on C6. Posterior disc bulge. Bilateral facet hypertrophy. Moderate bilateral foraminal narrowing with flattening deformity on the exiting bilateral C6 nerve roots. C6-C7: Posterior disc post osteophyte diffusely. No canal stenosis. Bilateral uncovertebral joint hypertrophy. Bilateral facet hypertrophy. Moderate bilateral foraminal narrowing with flattening deformity on the exiting bilateral C7 nerve roots. C7-T1: 3 mm anterolisthesis of C7 on T1. No significant canal stenosis. Bilateral uncovertebral joint hypertrophy. Bilateral moderate to severe foraminal narrowing with flattening deformity on the exiting bilateral C8 nerve roots. IMPRESSION: 1. Extensive cervical spondylitic change with multilevel facet arthropathy and multilevel listhesis. 2. There is [id number]-philijck canal stenosis at C4-C5. 3. Significant multilevel foraminal narrowing as described above. Comment: Consider flexion and extension cervical spine plain films to evaluate for abnormal motion Dictated by: Manjit Reyez M.D. on 04/30/2023 at 8:53 Approved by: Manjit Reyez M.D. on 04/30/2023 at 9:13
== END ==
PROVIDERS: PCP Family Medicine; Referring Provider Physical Medicine & Rehabilitation; Visit Provider Physical Medicine & Rehabilitation
DX: M48.02 Spinal stenosis, cervical region (principal); M47.812 Spondylosis without myelopathy or radiculopathy, cervical region; M43.12 Spondylolisthesis, cervical region
CPT/HCPCS: 72141

== ENCOUNTER 2023-05-12 10:08 | Outpatient (CLI) | payer MEDICARE, OTHER, SELFPAY ==
--- NOTE | 2023-05-12 10:10 | DI.RAD.S_ITS ---
PROCEDURE: PAIN L INTERLAMINAR/CAUDAL INJ INDICATIONS: SPONDYLOSIS COMPARISON: [facility] [place], CR, XR LUMBAR SPINE 2 OR 3 VIEWS, 05/20/2021, 11:29. FINDINGS: Fluoroscopic spot filming was performed to verify placement of spinal needle at the L3-4 epidural space, as labeled on the films. Appropriate location of the needle tip was confirmed by injection of iodinated contrast. IMPRESSION: Intraprocedural examination demonstrates appropriate needle position. Approved by: Marquis Echevarria M.D. on 05/12/2023 at 15:59
[2023-05-12 11:05] VITALS: BP 138/52; PULSE 61; RESP 16; TEMP 36.7; O2SAT 98
--- NOTE | 2023-05-12 11:16 | PC.NURSE ---
Patient adamantly refuses IV and sedation. Dr. Cameron aware.
[2023-05-12 11:44] VITALS: BP 140/86; PULSE 64; RESP 13; O2SAT 97
[2023-05-12] MEDS: IOPAMIDOL 15 ML VIAL 3 ML INJ (11:46)
[2023-05-12] MEDS: DEXAMETHASONE 10 MG/ML VIAL 20 MG INJ (11:47)
[2023-05-12] MEDS: BETAMETHASONE 30 MG/5 ML MDV 6 MG INJ (11:48)
[2023-05-12] MEDS: BUPIVACAINE 0.25% (PF) VIAL 2 ML INJ (11:48)
[2023-05-12 11:49] VITALS: BP 133/70; PULSE 58; RESP 14; O2SAT 99
[2023-05-12 11:53] VITALS: BP 134/67; PULSE 63; RESP 19; O2SAT 100
[2023-05-12 12:00] VITALS: BP 152/67; PULSE 63; RESP 18; O2SAT 98
--- NOTE | 2023-05-12 12:01 | P.PCN_ITS ---
Date/Time/Diagnoses Date of procedure: 05/12/23 Time of procedure: 12:01 Pre-procedure diagnosis: 1. HNP WITH RADICULAR FEATURES, 2. MULTILEVEL CENTRAL STENOSIS, Post-procedure diagnosis: same Procedure Notes Procedure: 1. FLUOROSCOPICALLY GUIDED CONTRAST CONTROLLED INTERLAMINAR EPIDURAL STEROID INJECTION - Para Right L3/4 Indications: Jonnathan is referred by Dr. Ba for treatment of Bilateral Foraminal Stenosis L>R LE symptoms. Physician: Deondre Cameron Total Fluoroscopy time (seconds): 7 Total sedation minutes: 0 Complications: none Procedure in detail & Post-procedure care: FINDINGS Multilevel Central Spinal Stenosis with Nerve Root Compression DESCRIPTION OF PROCEDURE Fluoroscopically guided, contrast-controlled L3/4 translaminar epidural steroid injection. Following review of allergy and review of potential side effects and complications, including, but not necessarily limited to, infection, allergic reaction, local tissue breakdown, temporary as well as permanent nerve injury, paralysis, stroke and possible , the patient indicated that the patient understood and agreed to proceed. An informed consent document was signed by the patient, witnessed by a nurse, and placed in the patient's chart. Additionally, other treatment options including modalities, medications, and physical therapy were reviewed with the patient. After review of previous anaesthesic history and IV conscious sedation the patient was deemed safe to proceed with today?s procedure with IV conscious sedation as ASA class II designation. Safety time-out was performed to confirm patient ID, procedure to be performed and site of procedure. IV sedation was deemed unnecessary and thus not administered by the RN after DO order, titrated to patient comfort during the course of the procedure while the patient remained responsive to all verbal commands. In the prone position, following sterile prep and drape of the lumbar region, the L3/4 translaminar space was identified fluoroscopically. The skin was anesthetized via a 25-gauge, 1.5-inch needle with 1% lidocaine solution. At this point, a 22-gauge short bevel spinal needle was atraumatically introduced and advanced under fluoroscopic guidance into the region of the L3/4 translaminar space. Depth was confirmed on lateral view. Radiological data, including multiple fluoroscopic views of the lumbar spine, reveal a spinal needle at the L3/4 translaminar space. Lateral views then show placement of the needle in the epidural space. Subsequent views show contrast material flowing superiorly and inferiorly in the epidural space. No vascular or intrathecal uptake is observed. At this point, using loss of resistance technique with saline and air, the epidural space was entered. This was confirmed following negative aspiration with injection of approximately 1.5 cc of Isovue 200, showing excellent epidural flow without vascular or intrathecal uptake. At this point, 1cc of 1% lidocaine solution combined with 3cc or 20mg of dexamethasone and 6mg of betamethasone was injected without incident. The patient tolerated the procedure well without signs or symptoms of complications prior to transfer to the recovery area continued monitoring without incident. The patient was then transferred to the recovery area where they were observed for an appropriate period of time after the injection. The patient reported a VAS score of 9 prior to the procedure and a post- procedure VAS of 2. POST OP INSTRUCTIONS The patient was provided a Pain Log to continue to record their response to the target-specific procedure prior to follow-up visit with their referring physician. Additionally, specific post-injection care instructions and a contact number to our office were provided if concerns arise regarding possible complications associated with the procedure are suspected.
[2023-05-12 12:05] VITALS: BP 115/59; PULSE 59; RESP 20; O2SAT 99
== END 2023-05-12 12:15 | disposition home or self-care (01) ==
LOC: RAD 10:10
PROVIDERS: PCP Family Medicine; Referring Provider Physical Medicine & Rehabilitation; Visit Provider Physical Medicine & Rehabilitation
DX: M51.16 Intervertebral disc disorders with radiculopathy, lumbar region (principal); M48.061 Spinal stenosis, lumbar region without neurogenic claudication
CPT/HCPCS: 62323; J0702; J1100; J3490

== ENCOUNTER → 2023-07-29 13:25 | Outpatient (CLI) | payer MEDICARE, OTHER, SELFPAY ==
--- NOTE | 2023-07-29 13:27 | DI.RAD.S_ITS ---
PROCEDURE: XR CERVICAL SPINE 4V OR 5V INDICATIONS: Cervical stenosis TECHNIQUE: 5 views of the cervical spine acquired. COMPARISON: [facility], MR, MR CERVICAL SPINE WO CON, 04/30/2023, 7:54. FINDINGS: Bones: Moderate degenerative changes and multilevel trace anterolisthesis of C4 on C5, C5 on C6 and C7 on T1. There is disc space height loss, arthropathy, and osteophytes. No traumatic subluxation or acute vertebral body height loss is seen. On oblique views, multilevel bilateral neural foraminal narrowing is suspected secondary to arthropathy and osteophytes. Soft tissues: Carotid bulb calcifications. C1 on C2 alignment on odontoid view likely within normal limits. No pathologic prevertebral soft tissue swelling. IMPRESSION: Moderate degenerative changes and multilevel, likely degenerative spondylolisthesis. Oblique view show suspected multilevel bilateral areas of neural foraminal narrowing. If there is high concern for further derangement, consider MRI evaluation. Dictated by: Calos Aguilar M.D. on 07/29/2023 at 16:31 Approved by: Calos Aguilar M.D. on 07/29/2023 at 16:33
--- NOTE | 2023-07-29 13:27 | DI.RAD.S_ITS ---
PROCEDURE: XR LUMBAR SPINE MIN 4V INDICATIONS: Bilateral sacral DJD TECHNIQUE: 5 views of the lumbar spine were acquired, including bilateral oblique views. COMPARISON: [facility], MR, MR LUMBAR SPINE WITHOUT CONTRAST, 05/29/2021, 7:54. FINDINGS: Bones: Mild leftward spinal curvature centered at L4. Anterolisthesis of L4 on L5 measuring 7 mm. There is also retrolisthesis of L2 on L3 measuring 8 mm. Mild endplate deformities may represent degenerative disc disease and Schmorl's nodes. Oblique views are limited by overlapping bowel gas and spinal curvature. Partially seen hip and sacroiliac degenerative changes. Overall moderate degenerative changes. Soft tissues: Vascular calcifications. Abdominal calcifications, some which may represent nephroliths. IMPRESSION: Overall moderate degenerative changes, with multilevel spondylolisthesis and levoconvex spinal curvature. If there is high concern for further derangement, consider MRI evaluation. Dictated by: Calos Aguilar M.D. on 07/29/2023 at 16:24 Approved by: Calos Aguilar M.D. on 07/29/2023 at 16:28
== END ==
PROVIDERS: PCP Family Medicine; Referring Provider Physical Medicine & Rehabilitation; Visit Provider Physical Medicine & Rehabilitation
DX: M47.816 Spondylosis without myelopathy or radiculopathy, lumbar region (principal); M43.16 Spondylolisthesis, lumbar region; M53.3 Sacrococcygeal disorders, not elsewhere classified; M47.812 Spondylosis without myelopathy or radiculopathy, cervical region; M48.02 Spinal stenosis, cervical region; M16.0 Bilateral primary osteoarthritis of hip; M75.42 Impingement syndrome of left shoulder; M75.122 Complete rotator cuff tear or rupture of left shoulder, not specified as traumatic; M96.1 Postlaminectomy syndrome, not elsewhere classified
CPT/HCPCS: 72050; 72110; 99214

== ENCOUNTER 2023-08-11 09:41 | Outpatient (CLI) | payer MEDICARE, OTHER, SELFPAY ==
--- NOTE | 2023-08-11 09:42 | DI.RAD.S_ITS ---
PROCEDURE: PAIN SI JOINT INJECTION ASHKAN INDICATIONS: SACROILIAC DISORDER COMPARISON: [facility], CR, XR LUMBAR SPINE MIN 4V, 07/29/2023, 13:35. [facility], CR, XR HIP W PEL IF DONE ASHKAN 3TO4V, 03/05/2022, 8:49. FINDINGS: On these intraprocedural images, there are spinal needles seen overlying the inferior aspect of each sacroiliac joint. Appropriate position of the tip of the needles was confirmed by injection of a small amount of iodinated contrast. IMPRESSION: Successful sacroiliac joint injection. Dictated by: Trung Shore M.D. on 08/11/2023 at 11:29 Approved by: Trung Shore M.D. on 08/11/2023 at 11:30
[2023-08-11 10:00] VITALS: BP 149/67; PULSE 74; RESP 20; TEMP 36.6; O2SAT 97
--- NOTE | 2023-08-11 10:22 | PC.NURSE ---
Patient declines IV or sedation.
[2023-08-11 10:30] VITALS: BP 153/70; PULSE 71; RESP 18; O2SAT 99
[2023-08-11 10:35] VITALS: BP 142/61; PULSE 64; RESP 12; O2SAT 98
[2023-08-11] MEDS: BUPIVACAINE 0.5% (PF) 10 ML VIAL 2 ML INJ (10:37)
[2023-08-11] MEDS: BETAMETHASONE 30 MG/5 ML MDV 12 MG INJ (10:37)
[2023-08-11] MEDS: IOPAMIDOL 15 ML VIAL 3 ML INJ (10:37)
[2023-08-11 10:40] VITALS: BP 141/68; PULSE 61; RESP 18; O2SAT 100
[2023-08-11 10:44] VITALS: BP 130/66; PULSE 63; RESP 18; O2SAT 100
--- NOTE | 2023-08-11 10:48 | PM.PROC.IR.1 ---
Date/Time/Diagnoses Date of procedure: 08/11/23 Time of procedure: 10:48 Pre-procedure diagnosis: Sacroiliac joint pain/DJD Post-procedure diagnosis: same Procedure Notes Procedure: Fluoroscopic guided contrast controlled bilateral sacroiliac joint injection Indications: Jonnathan is referred by Dr. Ba for treatment of bilateral sacroiliac joint DJD Physician: Deondre Cameron Total Fluoroscopy time (seconds): 13 Total sedation minutes: 0 Complications: none Procedure in detail & Post-procedure care: Description of procedure Fluoroscopic guided, contrast controlled bilateral sacroiliac joint injection Following review of allergies and review of potential side effects and complications, including, but not necessarily limited to, infection, allergic reaction, local tissue breakdown, temporary as well as permanent nerve injury, paralysis, stroke and possible , the patient indicated that they understood and agreed to proceed. An informed consent was signed by the patient, witnessed by a nurse, and placed in the patient's chart. Additionally, other treatment options including modalities, medications, and physical therapy were reviewed with the patient. After review of previous anaesthesic history and IV conscious sedation the patient was deemed safe to proceed with today?s procedure with IV conscious sedation as ASA class II designation. Safety time-out was performed to confirm patient ID, procedure to be performed and site of procedure. IV sedation was deemed unnecessary and thus not administered by the RN after DO order, titrated to patient comfort during the course of the procedure while the patient remained responsive to all verbal commands In the prone position following sterile prep and drape of the pelvic region, the hyper lucency on in the inferior aspect of the sacroiliac joint was identified fluoroscopically the skin was anesthetized be a 25 gauge 1.5 inch needle with approximately 2cc of 1% lidocaine solution. At this point, a 22 gauge 3 in spinal needle was atraumatically introduced and advanced under fluoroscopic guidance into the inferior aspect of the right sacroiliac joint. Following negative aspiration, approximately 0.3cc of Isovue-300 was injected confirming intra-articular placement without vascular uptake. Radiographic data, including multiple fluoroscopic views of the pelvis, reveals a spinal needle in the sacroiliac joint hyper lucent zone. Subsequent view show flow contrast tear superiorly and inferiorly within the joint capsule without vascular intrathecal uptake. At this point a total of 1cc of 0.5% Marcaine was combined with 1cc of 6mg of betamethasone was injected without incident. Attention was then refocused the left sacroiliac joint where the procedure was replicated. The procedure tolerated the procedure well without signs or symptoms of complications prior to transfer to the recovery area continued monitoring without incident. The patient was then transferred to the recovery area with a bur observed for an appropriate time after the injection. The patient reverted a vas score of 7 prior to the procedure and post-procedure vas of 1. Postop instructions The patient was provided with a pain like to continue to record the patient's response to the target specific procedure prior to the patient's follow-up visit with the referring physician. Additionally, specific post injection care instructions and a contact number to our office were provided if concerns arise regarding the possible complications associated with procedure are suspected.
[2023-08-11 10:50] VITALS: BP 152/65; PULSE 65; RESP 18; O2SAT 99
== END 2023-08-11 10:55 | disposition home or self-care (01) ==
LOC: RAD 09:42
PROVIDERS: PCP Family Medicine; Referring Provider Physical Medicine & Rehabilitation; Visit Provider Physical Medicine & Rehabilitation
DX: M46.1 Sacroiliitis, not elsewhere classified (principal); M53.3 Sacrococcygeal disorders, not elsewhere classified
CPT/HCPCS: 27096; 77002; J0702

== ENCOUNTER 2023-11-10 08:09 | Outpatient (CLI) | payer MEDICARE, OTHER, SELFPAY ==
[2023-11-10] VITALS (7 sets, daily range): BP systolic 133–157; BP diastolic 56–71; PULSE 60–69; RESP 12–20; TEMP 37.1; O2SAT 96–99
--- NOTE | 2023-11-10 08:25 | PC.NURSE ---
Patient declines IV start and does not want sedation.
--- NOTE | 2023-11-10 08:45 | DI.RAD.S_ITS ---
PROCEDURE: PAIN L/S TRANSFORAM INJECT ASHKAN COMPARISON: CR, XR LUMBAR SPINE MIN 4V, 07/29/2023, 13:35. INDICATIONS: LUMBAR STENOSIS FINDINGS: 8 intraoperative fluoroscopy images demonstrate transforaminal epidural injection at L3-L4 level. IMPRESSION: Fluoroscopy for pain management. Dictated by: Giulia Cervantes M.D. on 11/10/2023 at 9:33 Approved by: Giulia Cervantes M.D. on 11/10/2023 at 9:33
[2023-11-10] MEDS: BUPIVACAINE 0.25% (PF) VIAL 2 ML INJ (08:59)
[2023-11-10] MEDS: iopamidoL 15 ML VIAL 3 ML INJ (09:00)
[2023-11-10] MEDS: BETAMETHASONE 30 MG/5 ML MDV 12 MG INJ (09:00)
[2023-11-10] MEDS: DEXAMETHASONE 10 MG/ML VIAL 20 MG INJ (09:00)
--- NOTE | 2023-11-10 09:15 | PM.PROC.IR.1 ---
Date/Time/Diagnoses Date of procedure: 11/10/23 Time of procedure: 09:15 Pre-procedure diagnosis: 1. FORAMINAL STENOSIS WITH LE SYMPTOMS Post-procedure diagnosis: same Procedure Notes Procedure: 1. FLUOROSCOPICALLY GUIDED CONTRAST CONTROLLED TRANSFORAMINAL EPIDURAL STEROID INJECTION - BILATERAL L3/4 TFESI Indications: Jonnathan is referred by Dr. Ba for treatment of Foraminal Stenosis with bilateral LE Symptoms Physician: Deondre Cameron Total Fluoroscopy time (seconds): 15 Total sedation minutes: 0 Complications: none Procedure in detail & Post-procedure care: FINDINGS Foraminal Nerve Root Compression secondary to disc disease and facet hypertrophy DESCRIPTION OF PROCEDURE Following review of allergy and review of potential side effects and complications, including, but not necessarily limited to, infection, allergic reaction, local tissue breakdown, stroke, temporary or permanent nerve injury, paralysis, and possible , the patient indicated that the patient understood and agreed to proceed. An informed consent document was signed by the patient, witnessed by a nurse, and placed in the patient's chart. Additionally, other treatment options including medications, modalities, and physical therapy were reviewed with the patient. After review of previous anaesthesic history and IV conscious sedation the patient was deemed safe to proceed with today?s procedure with IV conscious sedation as ASA class II designation. Safety time-out was performed to confirm patient ID, procedure to be performed and site of procedure. IV sedation was deemed unnecessary and thus not administered by the RN after DO order, titrated to patient comfort during the course of the procedure while the patient remained responsive to all verbal commands In the prone position following sterile prep and drape of the lumbar region, the right L3/4 posterior neuroforamen was identified fluoroscopically. The skin was anesthetized via a 25-gauge 1.5-inch needle with 1% lidocaine solution. At this point, a 25-gauge 3.5-inch spinal needle was atraumatically introduced and advanced under fluoroscopic guidance through the posterior right L3/4 neuroforamen to approximately the anterior aspect of the canal. Depth was confirmed on lateral view. Following negative aspiration, injection of approximately 1.5cc of Isovue 200 under live fluoroscopy in the AP view confirmed excellent flow along the nerve root, into the epidural space without vascular or intrathecal uptake observed Radiological data, including multiple fluoroscopic views of the lumbosacral spine, reveal a spinal needle at the right L3/4 posterior neuroforamen. Subsequent views show flow of contrast material flowing superiorly and inferiorly along the nerve root confirming epidural flow. Subsequently, a test dose of 1.5cc of 1% lidocaine solution was administered and patient was observed for two minutes for signs or symptoms of complications, including abdominal pain, shortness of breath, bilateral upper or lower extremity weakness, nausea and vomiting, prior to steroid injection. At this point, a total of 2cc or 10mg of dexamethasone and 6mg betamethasone was injected without incident. Attention was then refocused to the left L3/4 level where the identical procedure was replicated. The procedure tolerated the procedure well without signs or symptoms of complications prior to transfer to the recovery area continued monitoring without incident. The patient was then transferred to the recovery area where they were observed for an appropriate time after the injection. The patient reported a VAS score of 7 prior to the procedure and a post-procedure VAS of 0. POST OP INSTRUCTIONS The patient was provided a Pain Log to continue to record their response to the target-specific procedure prior to follow-up visit with their referring physician. Additionally, specific post-injection care instructions and a contact number to our office were provided if concerns arise regarding possible complications associated with the procedure are suspected.
== END 2023-11-10 09:35 | disposition home or self-care (01) ==
LOC: RAD 08:10
PROVIDERS: PCP Family Medicine; Referring Provider Physical Medicine & Rehabilitation; Visit Provider Physical Medicine & Rehabilitation
DX: M48.061 Spinal stenosis, lumbar region without neurogenic claudication (principal); M51.16 Intervertebral disc disorders with radiculopathy, lumbar region; M47.26 Other spondylosis with radiculopathy, lumbar region
CPT/HCPCS: 64483; J0702; J1100; J3490

== ENCOUNTER 2024-03-10 08:12 | Outpatient (CLI) | payer MEDICARE, OTHER, SELFPAY ==
--- NOTE | 2024-03-10 08:13 | DI.RAD.S_ITS ---
PROCEDURE: PAIN L/S TRANSFORAMINAL INJECT INDICATIONS: radiculopathy COMPARISON: [facility], , PAIN L/S TRANSFORAMINAL INJECT, 03/18/2022, 16:11. FINDINGS: Fluoroscopic spot filming was performed to verify placement of spinal needles at the right L3-L4 level(s), as labeled on the films for transforaminal epidural steroid injection. Contrast injection confirms appropriate placement. Fluoroscopy time: 6 seconds. Five images were saved. IMPRESSION: Epidural steroid injection Dictated by: Dereje Chance M.D. on 03/10/2024 at 12:42 Approved by: Dereje Chance M.D. on 03/10/2024 at 12:44
[2024-03-10 08:30] VITALS: BP 108/55; PULSE 70; RESP 18; TEMP 36.8; O2SAT 98
--- NOTE | 2024-03-10 08:41 | PC.NURSE ---
Patient declines sedation and refused IV placement. aware.
[2024-03-10 09:09] VITALS: BP 129/61; PULSE 70; RESP 16; O2SAT 98
[2024-03-10] MEDS: iopamidoL 15 ML VIAL 3 ML INJ (09:11)
[2024-03-10] MEDS: DEXAMETHASONE 10 MG/ML VIAL INJ (09:12)
[2024-03-10] MEDS: BUPIVACAINE 0.25% (PF) VIAL 2 ML INJ (09:12)
[2024-03-10] MEDS: BETAMETHASONE 30 MG/5 ML MDV 6 MG INJ (09:12)
[2024-03-10 09:14] VITALS: BP 125/61; PULSE 65; RESP 13; O2SAT 99
[2024-03-10 09:17] VITALS: BP 120/58; PULSE 64; RESP 10; O2SAT 100
[2024-03-10 09:22] VITALS: BP 125/60; PULSE 72; RESP 16; O2SAT 97
--- NOTE | 2024-03-10 09:28 | PM.PROC.IR.1 ---
Date/Time/Diagnoses Date of procedure: 03/10/24 Time of procedure: 09:28 Pre-procedure diagnosis: 1. FORAMINAL STENOSIS WITH LE SYMPTOMS Post-procedure diagnosis: same Procedure Notes Procedure: 1. FLUOROSCOPICALLY GUIDED CONTRAST CONTROLLED TRANSFORAMINAL EPIDURAL STEROID INJECTION - RIGHT L3/4 TFESI Indications: Jonnathan is referred by Dr. Nugent for treatment of Foraminal Stenosis with right LE Symptoms Physician: Deondre Cameron Total Fluoroscopy time (seconds): 10 Total sedation minutes: 0 Complications: none Procedure in detail & Post-procedure care: FINDINGS Foraminal Nerve Root Compression secondary to disc disease and facet hypertrophy DESCRIPTION OF PROCEDURE Following review of allergy and review of potential side effects and complications, including, but not necessarily limited to, infection, allergic reaction, local tissue breakdown, stroke, temporary or permanent nerve injury, paralysis, and possible , the patient indicated that the patient understood and agreed to proceed. An informed consent document was signed by the patient, witnessed by a nurse, and placed in the patient's chart. Additionally, other treatment options including medications, modalities, and physical therapy were reviewed with the patient. After review of previous anaesthesic history and IV conscious sedation the patient was deemed safe to proceed with today?s procedure with IV conscious sedation as ASA class II designation. Safety time-out was performed to confirm patient ID, procedure to be performed and site of procedure. IV sedation was deemed unnecessary and thus not administered by the RN after DO order, titrated to patient comfort during the course of the procedure while the patient remained responsive to all verbal commands In the prone position following sterile prep and drape of the lumbar region, the right L3/4 posterior neuroforamen was identified fluoroscopically. The skin was anesthetized via a 25-gauge 1.5-inch needle with 1% lidocaine solution. At this point, a 25-gauge 3.5-inch spinal needle was atraumatically introduced and advanced under fluoroscopic guidance through the posterior right L3/4 neuroforamen to approximately the anterior aspect of the canal. Depth was confirmed on lateral view. Following negative aspiration, injection of approximately 1.5 cc of Isovue 200 under live fluoroscopy in the AP view confirmed excellent flow along the nerve root, into the epidural space without vascular or intrathecal uptake observed Radiological data, including multiple fluoroscopic views of the lumbosacral spine, reveal a spinal needle at the right L3/4 posterior neuroforamen. Subsequent views show flow of contrast material flowing superiorly and inferiorly along the nerve root confirming epidural flow. Subsequently, a test dose of 1.5 cc of 1% lidocaine solution was administered and patient was observed for two minutes for signs or symptoms of complications, including abdominal pain, shortness of breath, bilateral upper or lower extremity weakness, nausea and vomiting, prior to steroid injection. At this point, a total of 2cc or 10mg of dexamethasone and 6mg of betamethasone was injected without incident. The patient tolerated the procedure well without signs or symptoms of complications prior to transfer to the recovery area continued monitoring without incident. The patient was then transferred to the recovery area where they were observed for an appropriate time after the injection. The patient reported a VAS score of 9 prior to the procedure and a post-procedure VAS of 1. POST OP INSTRUCTIONS The patient was provided a Pain Log to continue to record their response to the target-specific procedure prior to follow-up visit with their referring physician. Additionally, specific post-injection care instructions and a contact number to our office were provided if concerns arise regarding possible complications associated with the procedure are suspected.
--- NOTE | 2024-03-10 09:39 | PC.NURSE ---
Pt's right knee numbness reassessed at 0930. Patient stated that it was no longer numb and he was able to stand without assistance as well take steps in place. He was back at his baseline mobility upon discharge.
== END 2024-03-10 09:32 | disposition home or self-care (01) ==
LOC: RAD 08:12
PROVIDERS: PCP Family Medicine; Referring Provider Physical Medicine & Rehabilitation; Visit Provider Physical Medicine & Rehabilitation
DX: M48.061 Spinal stenosis, lumbar region without neurogenic claudication (principal); M51.16 Intervertebral disc disorders with radiculopathy, lumbar region; M47.26 Other spondylosis with radiculopathy, lumbar region
CPT/HCPCS: 64483; J0702; J1100; J3490

== ENCOUNTER 2024-06-07 08:18 | Outpatient (CLI) | payer MEDICARE, OTHER, SELFPAY ==
[2024-06-07 08:50] VITALS: BP 125/60; PULSE 66; RESP 18; TEMP 36.9; O2SAT 95
--- NOTE | 2024-06-07 09:15 | DI.RAD.S_ITS ---
PROCEDURE: PAIN L/S TRANSFORAMINAL INJECT INDICATIONS: Right L3/4 TFESI COMPARISON: [facility], , PAIN L/S TRANSFORAMINAL INJECT, 03/10/2024, 9:09. FINDINGS: Fluoroscopic spot filming was performed to verify placement of spinal needles at the right L3-L4 level(s), as labeled on the films. Appropriate location(s) of the needle tip(s) was confirmed by injection of iodinated contrast. IMPRESSION: Intra procedural examination demonstrating appropriate positions of the needles. Dictated by: Bryan Merino M.D. on 06/07/2024 at 11:15 Approved by: Bryan Merino M.D. on 06/07/2024 at 11:16
[2024-06-07 09:25] VITALS: BP 144/63; PULSE 63; RESP 15; O2SAT 100
[2024-06-07 09:30] VITALS: BP 112/58; PULSE 62; RESP 14; O2SAT 100
[2024-06-07] MEDS: BETAMETHASONE 30 MG/5 ML MDV 6 MG INJ (09:32)
[2024-06-07] MEDS: BUPIVACAINE 0.25% (PF) VIAL 2 ML INJ (09:32)
[2024-06-07] MEDS: iopamidoL 15 ML VIAL 3 ML INJ (09:33)
[2024-06-07] MEDS: DEXAMETHASONE 10 MG/ML VIAL INJ (09:33)
[2024-06-07] MEDS: LIDOCAINE 1% 20 ML INJ (09:34)
[2024-06-07 09:35] VITALS: BP 137/63; PULSE 62; RESP 15; O2SAT 100
[2024-06-07 09:40] VITALS: BP 102/69; PULSE 64; RESP 12; O2SAT 100
[2024-06-07 09:50] VITALS: BP 134/63; PULSE 61; RESP 16; O2SAT 97
--- NOTE | 2024-06-07 09:51 | PM.PROC.IR.1 ---
Date/Time/Diagnoses Date of procedure: 06/07/24 Time of procedure: 09:51 Pre-procedure diagnosis: 1. FORAMINAL STENOSIS WITH LE SYMPTOMS Post-procedure diagnosis: same Procedure Notes Procedure: 1. FLUOROSCOPICALLY GUIDED CONTRAST CONTROLLED TRANSFORAMINAL EPIDURAL STEROID INJECTION - RIGHT L3/4 TFESI Indications: Jonnathan is referred by Dr. Ba for treatment of Foraminal Stenosis with right LE Symptoms Physician: Deondre Cameron Total Fluoroscopy time (seconds): 8 Total sedation minutes: 0 Complications: none Procedure in detail & Post-procedure care: FINDINGS Foraminal Nerve Root Compression secondary to disc disease and facet hypertrophy DESCRIPTION OF PROCEDURE Following review of allergy and review of potential side effects and complications, including, but not necessarily limited to, infection, allergic reaction, local tissue breakdown, stroke, temporary or permanent nerve injury, paralysis, and possible , the patient indicated that the patient understood and agreed to proceed. An informed consent document was signed by the patient, witnessed by a nurse, and placed in the patient's chart. Additionally, other treatment options including medications, modalities, and physical therapy were reviewed with the patient. After review of previous anaesthesic history and IV conscious sedation the patient was deemed safe to proceed with today?s procedure with IV conscious sedation as ASA class II designation. Safety time-out was performed to confirm patient ID, procedure to be performed and site of procedure. IV sedation was not administered by the RN after DO order, titrated to patient comfort during the course of the procedure while the patient remained responsive to all verbal commands In the prone position following sterile prep and drape of the lumbar region, the right L3/4 posterior neuroforamen was identified fluoroscopically. The skin was anesthetized via a 25-gauge 1.5-inch needle with 1% lidocaine solution. At this point, a 25-gauge 3.5-inch spinal needle was atraumatically introduced and advanced under fluoroscopic guidance through the posterior right L3/4 neuroforamen to approximately the anterior aspect of the canal. Depth was confirmed on lateral view. Following negative aspiration, injection of approximately 1.5 cc of Isovue 200 under live fluoroscopy in the AP view confirmed excellent flow along the nerve root, into the epidural space without vascular or intrathecal uptake observed Radiological data, including multiple fluoroscopic views of the lumbosacral spine, reveal a spinal needle at the right L3/4 posterior neuroforamen. Subsequent views show flow of contrast material flowing superiorly and inferiorly along the nerve root confirming epidural flow. Subsequently, a test dose of 1.5 cc of 1% lidocaine solution was administered and patient was observed for two minutes for signs or symptoms of complications, including abdominal pain, shortness of breath, bilateral upper or lower extremity weakness, nausea and vomiting, prior to steroid injection. At this point, a total of 2cc or 10mg of dexamethasone and 6mg of betamethasone was injected without incident. The patient tolerated the procedure well without signs or symptoms of complications prior to transfer to the recovery area continued monitoring without incident. The patient was then transferred to the recovery area where they were observed for an appropriate time after the injection. The patient reported a VAS score of 7 prior to the procedure and a post-procedure VAS of 0. POST OP INSTRUCTIONS The patient was provided a Pain Log to continue to record their response to the target-specific procedure prior to follow-up visit with their referring physician. Additionally, specific post-injection care instructions and a contact number to our office were provided if concerns arise regarding possible complications associated with the procedure are suspected.
== END 2024-06-07 09:55 | disposition home or self-care (01) ==
PROVIDERS: PCP Family Medicine; Referring Provider Physical Medicine & Rehabilitation; Visit Provider Physical Medicine & Rehabilitation
DX: M48.061 Spinal stenosis, lumbar region without neurogenic claudication (principal); M51.16 Intervertebral disc disorders with radiculopathy, lumbar region; M47.26 Other spondylosis with radiculopathy, lumbar region
CPT/HCPCS: 64483; J0702; J1100; J3490